=== PATIENT | female | born 2005 | race Caucasian/White ===

== ENCOUNTER 2025-01-17 11:39 | Observation (INO) ==
[2025-01-17] MEDS: ONDANSETRON INJ 2 MG/ML 2 ML VIAL IV STA (12:39)
[2025-01-17] MEDS: SODIUM CHLORIDE 0.9% 1,000 ML IV ONE (12:42)
[2025-01-17] MEDS: ACETAMINOPHEN 1,000 MG/100 ML VIAL IV STA (12:43)
[2025-01-17 12:45] LABS: Hematocrit (blood only) 42.9 % (37.0-47.0); Hemoglobin 14.5 g/dl (12.0-16.0); Mean Corpuscular Hemoglobin 26.8 pg (25.0-34.0); Mean Corpuscular Hgb Conc 33.8 g/dL (32.0-36.0); Mean Corpuscular Volume 79.3 fL (80.0-100.0); Mean Platelet Volume 11.9 fL (9.4-12.4); Platelet Count 277 K/uL (130-400); RDW Coefficient of Variation 13.5 % (11.5-14.5); RDW Standard Deviation 38.7 fL (36.4-46.3); Red Blood Count 5.41 M/uL (4.20-5.40); White Blood Count 23.86 K/ul (4.8-10.8)
[2025-01-17 12:47] LABS: Appearance Urine Cloudy (Clear); Bacteria Urine Automated 1+ (None Seen); Bilirubin Urine Negative (Negative); Blood Urine Trace (Negative); Glucose Urine UA Negative (Negative); Ketones Urine 2+ (Negative); Leukocyte Esterase Urine 2+ (Negative); Nitrite Urine Negative (Negative); Protein Urine 2+ (Negative); Specific Gravity Urine 1.028 (1.000-1.030); Urobilinogen Urine Negative (Negative); WBC Urine Automated >50 /hpf (0-5)
[2025-01-17 12:48] LABS: Color Urine Yellow
[2025-01-17 12:59] LABS: Pregnancy Test, Serum Negative (Negative)
--- NOTE | 2025-01-17 13:00 | Emergency Department Note ---
ED DC CONDITION Conditon at Discharge Condition at Discharge: Fair Impression & Plan Acute appendicitis, Nausea & vomiting, Leukocytosis ED Provider Note HISTORY OF PRESENT ILLNESS: Patient is a 19-year-old female presenting with abdominal pain and vomiting. Patient reports that she started having generalized abdominal pain this morning upon waking. Reports that she has vomited multiple times throughout the morning. Reports that she had a sip of water at around 8:30 am but then proceeded to vomit. Locates the pain diffusely across her abdomen. Denies any fevers or chills. Denies any dysuria or hematuria. Denies any recent sick contact exposures. Denies any diarrhea. Denies any history of abdominal surgeries reports her last menstrual period was a month ago. Denies any chest pain or shortness of breath. Describes the pain as a generalized cramping sensation. Denies any alleviating or exacerbating factors. ROS: as above PHYSICAL EXAM: Constitutional: Patient appears in no acute distress. HENT: Head: Normocephalic and atraumatic. Eyes: EOMI, PERRL Mouth/Throat: Mucous membranes moist. Neck: Trachea midline. Neck supple. Cardiovascular: RRR, No murmurs, rubs or gallops. Intact distal pulses. Pulmonary/Chest: No respiratory distress. Breath sounds clear and equal bilaterally. No wheezes or rales. Abdominal: Abdomen soft, no rebound or guarding. RLQ TTP Musculoskeletal: No edema, tenderness or deformity noted. Skin: Warm and dry. No rash, erythema, pallor or cyanosis Psychiatric: Appropriate mood and affect for situation. Neurological: Alert and keenly responsive. CN II-XII grossly intact, moving all extremities equally and fully. MDM: - Vitals signs stable. - History obtained via patient. History as above. - Chronic conditions affecting care: None - Differential diagnoses include, but are not limited to: Aortic aneurysm; appendicitis; diverticulitis; ectopic ; ovarian cyst; ovarian torsion; ureteral calculi - Order placed for continuous cardiac monitoring. At this time, monitor showed rate of 90 bpm with normal sinus rhythm, per my interpretation. - External medical records reviewed. - Laboratory workup interpreted by myself showed leukocytosis (WBC 24.86) with neutrophil predominance; stable electrolytes; slightly elevated glucose (111) with normal anion gap; negative hCG; normal AST/ALT; normal lipase - UA showed bacteria and >50 WBCs, but patient not having any urinary symptoms - Patient given 1g IV tylenol, 1L NS and 4 mg IV zofran for symptomatic management. - CT abdomen/pelvis with IV contrast showed findings significant for acute appendicitis. - Discussed case with general surgeon vibration technician, Dr. Brown, at 13:22. He requested that his PA be updated. Did message Bonita Cruz PA-C. Plans to admit the patient. - Patient given mefoxin for antibiotic coverage. - Patient admitted to general surgery service for further evaluation and management. ASSESSMENT AND PLAN: Diagnosis: Acute appendicitis; nausea and vomiting; leukocytosis Plan: Admit Past Med/Surg History Problem List (Updated 01/17/25 @ 14:43 by Bonita Cruz PA-C) Nausea and vomiting Abdominal pain Medical History Bordetella pertussis Social History Smoking Status: Current some day smoker Preferred Language: Ukrainian Feels Safe at Home: Yes Home Meds Previous Rx's Medication Instructions Recorded benzonatate 100 mg capsule 100 mg PO TID PRN cough #20 caps 08/02/24 albuterol sulfate 90 mcg/actuation 2 inh inhalation Q6H #18 grams 08/04/24 aerosol inhaler Results & Data (ED) Vital Signs Vital Signs - 24 hr 01/17/25 11:47 01/17/25 12:10 Temperature 36.3 C L Temperature Source Temporal Artery Scan Pulse Rate 89 Pulse Strength Normal Respiratory Rate 16 Respiratory Effort / Characteristics Non-Labored Spontaneous Respiratory Depth Normal Respiratory Pattern Regular Blood Pressure 131/98 Blood Pressure Mean 109 Blood Pressure Position Sitting Pulse Oximetry 96 97 Oxygen Delivery Method Room Air Sepsis Recent Fever Within 48 Hours No Sepsis New/Unexplained Change in Mental Status No Sepsis Action Taken by Nursing No Action Required Laboratory Data 01/17/25 12:10 01/17/25 12:10 Lab Results 01/17/25 01/17/25 Range/Units 12:10 12:11 WBC 23.86 H (4.8-10.8) K/ul RBC 5.41 H (4.20-5.40) M/uL Hgb 14.5 (12.0-16.0) g/dl Hct 42.9 (37.0-47.0) % MCV 79.3 L (80.0-100.0) fL MCH 26.8 (25.0-34.0) pg MCHC 33.8 (32.0-36.0) g/dL RDW Std Deviation 38.7 (36.4-46.3) fL RDW Coeff of Malini 13.5 (11.5-14.5) % Plt Count 277 (130-400) K/uL MPV 11.9 (9.4-12.4) fL Immature Gran % (Auto) 0.5 % Neut % (Auto) 87.3 % Lymph % (Auto) 4.3 % [place] % (Auto) 7.3 % Eos % (Auto) 0.3 % Baso % (Auto) 0.3 % Neut # (Auto) 20.82 H (1.40-6.50) K/uL Lymph # (Auto) 1.03 L (1.20-3.40) K/uL [place] # (Auto) 1.74 H (0.11-0.59) K/uL Eos # (Auto) 0.08 (0.00-0.50) K/uL Baso # (Auto) 0.07 (0.00-0.20) K/uL Immature Gran # (Auto) 0.12 (0.01-0.20) K/uL Sodium 137 (136-145) mmol/L Potassium 3.9 (3.5-5.1) mmol/L Chloride 102 (98-107) mmol/L Carbon Dioxide 24 (21-32) mmol/L Anion Gap 11 (3-11) BUN 19 (6-23) mg/dl Creatinine 0.74 (0.6-1.2) mg/dl Est Cr Clr Drug Dosing 92.3 ml/min eGFR 119.45 BUN/Creatinine Ratio 25.7 H (10-20) Glucose 111 H (70-99(Fasting)) mg/dl Calcium 9.3 (8.6-10.3) mg/dl Total Bilirubin 0.9 (0.2-1.0) mg/dl AST 20 (13-39) U/L ALT 42 (7-52) U/L Alkaline Phosphatase 76 (34-104) U/L Total Protein 7.9 (6.0-8.3) gm/dl Albumin 4.8 (3.4-5.0) gm/dl Globulin 3.1 (2.5-4.0) gm/dl Albumin/Globulin Ratio 1.5 (0.9-2) Lipase 9 L (11-82) U/L HCG, Qual Negative (Negative) Urine Color Yellow Urine Appearance Cloudy A (Clear) Urine pH 6.0 (4.5-7.5) Ur Specific [place] 1.028 (1.000-1.030) Urine Protein 2+ H (Negative) Urine Glucose (UA) Negative (Negative) Urine Ketones 2+ H (Negative) Urine Blood Trace H (Negative) Urine Nitrite Negative (Negative) Urine Bilirubin Negative (Negative) Urine Urobilinogen Negative (Negative) Ur Leukocyte Esterase 2+ H (Negative) Urine WBC (Auto) >50 H (0-5) /hpf Urine RBC (Auto) 3-5 H (0-2) /hpf U Hyaline Cast (Auto) 3-5 H (0-2) /lpf U Epithel Cells (Auto) 6-10 H (0-2) /hpf Urine Bacteria (Auto) 1+ H (None Seen) Administered Medications Discontinued Medications Sodium Chloride (Nss) 1,000 mls @ 999 mls/hr IV .Q1H1M ONE Stop: 01/17/25 13:28 Last Infusion: 01/17/25 13:50 Dose: Infused Documented By: Admin: 01/17/25 12:42 Dose: 999 mls/hr Documented By: NOI Acetaminophen (Ofirmev) 1,000 mg in 100 mls @ 400 mls/hr IV NOW STA Stop: 01/17/25 12:42 Last Infusion: 01/17/25 13:00 Dose: Infused Documented By: Admin: 01/17/25 12:43 Dose: 400 mls/hr Documented By: ONI Cefoxitin Sodium (Mefoxin) 2,000 mg in 60 mls @ 100 mls/hr IV NOW STA Stop: 01/17/25 14:00 Last Infusion: 01/17/25 13:50 Dose: Infused Documented By: Admin: 01/17/25 13:32 Dose: 100 mls/hr Documented By: ONI Ioversol (Optiray 320 100ml) 95 ml IV ONCE ONE Stop: 01/17/25 13:02 Last Admin: 01/17/25 13:01 Dose: 95 ml Documented By: CHRISTINE Ondansetron HCl (Ondansetron Inj 2 Mg/Ml 2 Ml Vial) 4 mg IV NOW STA Stop: 01/17/25 12:29 Last Admin: 01/17/25 12:39 Dose: 4 mg Documented By: [facility] [place] Imaging Data Radiologist's Impression: Abdomen/Pelvis CT 01/17/25 12:28 CT SCAN OF THE ABDOMEN AND PELVIS WITH IV CONTRAST CLINICAL HISTORY: Right lower quadrant abdominal pain, nausea and vomiting. COMPARISON STUDY: None. TECHNIQUE: Following the IV administration of 95 cc of Optiray 320, CT scan of the abdomen and pelvis is performed from the lung bases to the proximal femora. Images are reviewed in the axial, sagittal, and coronal planes. IV contrast was administered without complication. A dose lowering technique was utilized adhering to the principles of ALARA. CT DOSE: 440.89 mGy.cm FINDINGS: Lung bases: The size of the heart is normal. There is no pericardial effusion. The lung bases are clear. Liver: The liver morphology is normal and there are no hepatic lesions. There is no intrahepatic biliary ductal dilatation. The hepatic veins and portal veins are patent. Gallbladder: Unremarkable. Spleen: Normal in size and attenuation. Pancreas: There are no pancreatic lesions. No pancreatic ductal dilatation is present. Adrenal glands: Unremarkable. Kidneys: There are no renal lesions. There is no hydronephrosis. The kidneys enhance symmetrically. Abdominal vasculature: The caliber of the abdominal aorta is normal. Major vasculature is patent. Bowel: The caliber and wall thickness of small and large bowel are normal. The appendix is at upper limits of normal for caliber, measuring 6 mm, and fluid- filled. There is prominent enhancement of the appendiceal wall. No definite periappendiceal inflammation. No free air or abscess is present. Peritoneum: There is no intraperitoneal free air. Trace fluid within the pelvis is present. Lymphadenopathy: None. Pelvic viscera: There is a rim-enhancing 2.2 cm right ovarian lesion. Skeletal structures: No lytic or blastic lesions are seen. IMPRESSION: 1. Findings equivocal for acute appendicitis. Top normal caliber appendix which is fluid-filled with prominent wall enhancement. No definite periappendiceal inflammation. 2. No bowel obstruction. No bowel wall thickening. 3. 2.2 cm rim-enhancing right adnexal lesion suggestive of a corpus luteal cyst. 4. Trace fluid within the pelvis. ACT 112: Negative or not required by law. Electronically signed by: Dakota Nash M.D. 01/17/2025 1:18 PM Discharge Plan Visit Data Chief Complaint: Abdominal Pain Stated Complaint: VOMITING, ABDOMINAL PAIN ED Provider: Josselin Cohen Discharge Problem: Acute appendicitis, Nausea & vomiting, Leukocytosis Condition: Fair Forms Stand Alone Forms: [employer] Prescriptions Prescriptions: No Action albuterol sulfate 90 mcg/actuation HFA aerosol inhaler 2 inh inhalation Q6H Qty: 18 2RF benzonatate 100 mg capsule 100 mg PO TID PRN (Reason: cough) Qty: 20 0RF Referrals Referrals: [facility] [Primary Care Provider] -
[2025-01-17 13:01] LABS: Albumin Globulin Ratio 1.5 (0.9-2); Albumin Level 4.8 gm/dl (3.4-5.0); BUN Creatinine Ratio 25.7 (10-20); Bilirubin,Total 0.9 mg/dl (0.2-1.0); Calcium 9.3 mg/dl (8.6-10.3); Creatinine Clr Calc Pharmacy 92.3 ml/min; Globulin 3.1 gm/dl (2.5-4.0); Potassium 3.9 mmol/L (3.5-5.1); Total Protein 7.9 gm/dl (6.0-8.3)
[2025-01-17] MEDS: OPTIRAY 320 100ml IV ONE (13:01)
[2025-01-17 13:05] LABS: Basophils # (auto) 0.07 K/uL (0.00-0.20); Basophils % (auto) 0.3 %; Eosinophils # (auto) 0.08 K/uL (0.00-0.50); Eosinophils % (auto) 0.3 %; Immature Granulocytes # (auto) 0.12 K/uL (0.01-0.20); Immature Granulocytes % (auto) 0.5 %; Lymphocytes # (auto) 1.03 K/uL (1.20-3.40); Lymphocytes % (auto) 4.3 %; Monocytes # (auto) 1.74 K/uL (0.11-0.59); Monocytes % (auto) 7.3 %; Neutrophils # (auto) 20.82 K/uL (1.40-6.50); Neutrophils % (auto) 87.3 %
--- NOTE | 2025-01-17 13:19 | CT Scan Report ---
CT SCAN OF THE ABDOMEN AND PELVIS WITH IV CONTRAST CLINICAL HISTORY: Right lower quadrant abdominal pain, nausea and vomiting. COMPARISON STUDY: None. TECHNIQUE: Following the IV administration of 95 cc of Optiray 320, CT scan of the abdomen and pelvi s is performed from the lung bases to the proximal femora. Images are reviewed in the axial, sagittal , and coronal planes. IV contrast was administered without complication. A dose lowering technique wa s utilized adhering to the principles of ALARA. CT DOSE: 440.89 mGy.cm FINDINGS: Lung bases: The size of the heart is normal. There is no pericardial effusion. The lung bases are guerita ar. Liver: The liver morphology is normal and there are no hepatic lesions. There is no intrahepatic bili kenna ductal dilatation. The hepatic veins and portal veins are patent. Gallbladder: Unremarkable. Spleen: Normal in size and attenuation. Pancreas: There are no pancreatic lesions. No pancreatic ductal dilatation is present. Adrenal glands: Unremarkable. Kidneys: There are no renal lesions. There is no hydronephrosis. The kidneys enhance symmetrically. Abdominal vasculature: The caliber of the abdominal aorta is normal. Major vasculature is patent. Bowel: The caliber and wall thickness of small and large bowel are normal. The appendix is at upper l imits of normal for caliber, measuring 6 mm, and fluid-filled. There is prominent enhancement of the appendiceal wall. No definite periappendiceal inflammation. No free air or abscess is present. Peritoneum: There is no intraperitoneal free air. Trace fluid within the pelvis is present. Lymphadenopathy: None. Pelvic viscera: There is a rim-enhancing 2.2 cm right ovarian lesion. Skeletal structures: No lytic or blastic lesions are seen. IMPRESSION: 1. Findings equivocal for acute appendicitis. Top normal caliber appendix which is fluid-filled with prominent wall enhancement. No definite periappendiceal inflammation. 2. No bowel obstruction. No bowel wall thickening. 3. 2.2 cm rim-enhancing right adnexal lesion suggestive of a corpus luteal cyst. 4. Trace fluid within the pelvis. ACT 112: Negative or not required by law. Electronically signed by: Dakota Nash M.D. 01/17/2025 1:18 PM
[2025-01-17] MEDS: cefOXitin 2,000 MG/60 ML BAG IV STA (13:32)
--- NOTE | 2025-01-17 14:48 | History & Physical Report ---
Date of Service January 17, 2025 Assessment & Plan (1) Abdominal pain: (2) Nausea and vomiting: Plan: 19 yo female with generalized abdominal pain that started as cramping pain last evening and increased in severity with nausea and vomiting. Leukocytosis of 23k however afebrile. CT scan of abdomen and pelvis with equivocal findings of acute appendicitis, mildly dilated appendix with wall prominence but no periappendiceal stranding. Tenderness in LLQ, RUQ and RLQ on abdominal examination. Discussed with patient that her imaging is equivocal for acute appendicitis and given her examination with tenderness in 3 quadrants this could be other etiology. Discussed option of admission with IV antibiotics, pain management and antiemetics as needed and close monitoring. If pain not improving or worsening than could proceed with laparoscopic appendectomy shayy manzano. Discussed laparoscopic appendectomy, risks, expected recovery and restrictions. She is a [employer] student and will be traveling home to [facility] on Friday. I discussed with patient I think very reasonable to admit and see how she does on IV antibiotics, if improves would discharge on 7 days of oral antibiotics. She is in agreement with proceeding with conservative management first with close monitoring. Discussed with Dr. Brown who agrees with above. History of Present Illness Chief Complaint: abdominal pain, nausea and vomiting Primary Care Provider: [facility] Huber is a 19 yo female who presented to ED with complaint of abdominal pain with associated nausea and vomiting that started last evening around 7 pm . Initially pain was more cramping in nature and then increased in severity this am around 4 am with nausea and bilious vomiting. Denies of any fever, chills, chest pain, shortness of breath, diarrhea, blood in stools, difficulty urinating or blood in urine. Had chicken and rice last night and friend also had which he did not have similar symptoms. Denies of any prior abdominal surgeries. Pain is currently 2/10. was about 7/10 initially. Home Medications Medication Instructions Recorded Confirmed Type benzonatate 100 mg capsule 100 mg PO TID PRN cough #20 caps 08/02/24 Rx albuterol sulfate 90 mcg/actuation 2 inh inhalation Q6H #18 grams 08/04/24 Rx aerosol inhaler Past Med/Surg History Problem List (Updated 01/17/25 @ 14:43 by Bonita Cruz PA-C) Nausea and vomiting Abdominal pain Medical History Bordetella pertussis Social History Smoking Status: Current some day smoker Preferred Language: Czech Feels Safe at Home: Yes Review of Systems Review of Systems: All systems reviewed & are unremarkable except as noted in HPI & below Physical Exam Constitutional: WD/WN, vitals as above cooperative and comfortable; no acute distress and not ill appearing Respiratory: normal respiratory effort, lungs clear to auscultation Cardiovascular: RRR, no murmur, no edema Gastrointestinal (Abdomen): Inspection/Auscultation: abdomen normal to ins pection and + abdomen distended (mild) Percussion/Palpation: + abdomen tender (LLQ, RLQ, and RUQ) and abdomen soft; no guarding and abdomen not rigid Skin: no rashes, warm and dry Psychiatric: A+Ox3, euthymic affect Results & Data Results & Data Vital Signs (Past 12 Hours) Vital Signs Temp Pulse Resp BP Pulse Ox O2 Del Method 01/17/25 12:10 97 Room Air 01/17/25 11:47 36.3 C L 89 16 131/98 96 Laboratory Results 01/17/25 01/17/25 Range/Units 12:11 12:10 WBC 23.86 H (4.8-10.8) K/ul RBC 5.41 H (4.20-5.40) M/uL Hgb 14.5 (12.0-16.0) g/dl Hct 42.9 (37.0-47.0) % MCV 79.3 L (80.0-100.0) fL MCH 26.8 (25.0-34.0) pg MCHC 33.8 (32.0-36.0) g/dL RDW Std Deviation 38.7 (36.4-46.3) fL RDW Coeff of Malini 13.5 (11.5-14.5) % Plt Count 277 (130-400) K/uL MPV 11.9 (9.4-12.4) fL Immature Gran % (Auto) 0.5 % Neut % (Auto) 87.3 % Lymph % (Auto) 4.3 % [place] % (Auto) 7.3 % Eos % (Auto) 0.3 % Baso % (Auto) 0.3 % Neut # (Auto) 20.82 H (1.40-6.50) K/uL Lymph # (Auto) 1.03 L (1.20-3.40) K/uL [place] # (Auto) 1.74 H (0.11-0.59) K/uL Eos # (Auto) 0.08 (0.00-0.50) K/uL Baso # (Auto) 0.07 (0.00-0.20) K/uL Immature Gran # (Auto) 0.12 (0.01-0.20) K/uL Sodium 137 (136-145) mmol/L Potassium 3.9 (3.5-5.1) mmol/L Chloride 102 (98-107) mmol/L Carbon Dioxide 24 (21-32) mmol/L Anion Gap 11 (3-11) BUN 19 (6-23) mg/dl Creatinine 0.74 (0.6-1.2) mg/dl Est Cr Clr Drug Dosing 92.3 ml/min eGFR 119.45 BUN/Creatinine Ratio 25.7 H (10-20) Glucose 111 H (70-99(Fasting)) mg/dl Calcium 9.3 (8.6-10.3) mg/dl Total Bilirubin 0.9 (0.2-1.0) mg/dl AST 20 (13-39) U/L ALT 42 (7-52) U/L Alkaline Phosphatase 76 (34-104) U/L Total Protein 7.9 (6.0-8.3) gm/dl Albumin 4.8 (3.4-5.0) gm/dl Globulin 3.1 (2.5-4.0) gm/dl Albumin/Globulin Ratio 1.5 (0.9-2) Lipase 9 L (11-82) U/L HCG, Qual Negative (Negative) Urine Color Yellow Urine Appearance Cloudy A (Clear) Urine pH 6.0 (4.5-7.5) Ur Specific [place] 1.028 (1.000-1.030) Urine Protein 2+ H (Negative) Urine Glucose (UA) Negative (Negative) Urine Ketones 2+ H (Negative) Urine Blood Trace H (Negative) Urine Nitrite Negative (Negative) Urine Bilirubin Negative (Negative) Urine Urobilinogen Negative (Negative) Ur Leukocyte Esterase 2+ H (Negative) Urine WBC (Auto) >50 H (0-5) /hpf Urine RBC (Auto) 3-5 H (0-2) /hpf U Hyaline Cast (Auto) 3-5 H (0-2) /lpf U Epithel Cells (Auto) 6-10 H (0-2) /hpf Urine Bacteria (Auto) 1+ H (None Seen) Diagnostic Findings CT SCAN OF THE ABDOMEN AND PELVIS WITH IV CONTRAST CLINICAL HISTORY: Right lower quadrant abdominal pain, nausea and vomiting. COMPARISON STUDY: None. TECHNIQUE: Following the IV administration of 95 cc of Optiray 320, CT scan of the abdomen and pelvis is performed from the lung bases to the proximal femora. Images are reviewed in the axial, sagittal, and coronal planes. IV contrast was administered without complication. A dose lowering technique was utilized adhering to the principles of ALARA. CT DOSE: 440.89 mGy.cm FINDINGS: Lung bases: The size of the heart is normal. There is no pericardial effusion. The lung bases are clear. Liver: The liver morphology is normal and there are no hepatic lesions. There is no intrahepatic biliary ductal dilatation. The hepatic veins and portal veins are patent. Gallbladder: Unremarkable. Spleen: Normal in size and attenuation. Pancreas: There are no pancreatic lesions. No pancreatic ductal dilatation is present. Adrenal glands: Unremarkable. Kidneys: There are no renal lesions. There is no hydronephrosis. The kidneys enhance symmetrically. Abdominal vasculature: The caliber of the abdominal aorta is normal. Major vasculature is patent. Bowel: The caliber and wall thickness of small and large bowel are normal. The appendix is at upper limits of normal for caliber, measuring 6 mm, and fluid- filled. There is prominent enhancement of the appendiceal wall. No definite periappendiceal inflammation. No free air or abscess is present. Peritoneum: There is no intraperitoneal free air. Trace fluid within the pelvis is present. Lymphadenopathy: None. Pelvic viscera: There is a rim-enhancing 2.2 cm right ovarian lesion. Skeletal structures: No lytic or blastic lesions are seen. IMPRESSION: 1. Findings equivocal for acute appendicitis. Top normal caliber appendix which is fluid-filled with prominent wall enhancement. No definite periappendiceal inflammation. 2. No bowel obstruction. No bowel wall thickening. 3. 2.2 cm rim-enhancing right adnexal lesion suggestive of a corpus luteal cyst. 4. Trace fluid within the pelvis. I personally reviewed CT scan and agrees with above findings. Code Status & VTE Plan VTE Prophylaxis Plan VTE Prophylaxis will be ordered: Yes
[2025-01-17] MEDS: fentaNYL citrate PF 100 MCG/2 ML VIAL IV STA (15:25)
[2025-01-17] MEDS ORDERED: ACETAMINOPHEN 325 MG TAB PO PRN (18:57)
[2025-01-17] MEDS ORDERED: MoRPHine SULFATE 2 MG/ML CARP IV PRN (18:57)
[2025-01-17] MEDS ORDERED: ONDANSETRON INJ 2 MG/ML 2 ML VIAL IV PRN (18:57)
[2025-01-17] MEDS ORDERED: PROMETHAZINE 12.5 MG/50.5 ML BAG IV PRN (18:57)
[2025-01-17] MEDS: LACTATED RINGER'S 1,000 ML IV SCH (18:57)
[2025-01-17] MEDS: MoRPHine SULFATE 2 MG/ML CARP IV PRN (19:28)
[2025-01-17] MEDS: PIPERACILLIN/TAZOBACTAM 4.5 GM/100 ML BAG IV ONE (19:30)
[2025-01-18] MEDS: PIPERACILLIN/TAZOBACTAM 4.5 GM/100 ML BAG IV SCH (03:24)
[2025-01-18 07:52] LABS: Basophils # (auto) 0.05 K/uL (0.00-0.20); Basophils % (auto) 0.7 %; Eosinophils # (auto) 0.18 K/uL (0.00-0.50); Eosinophils % (auto) 2.4 %; Hematocrit (blood only) 33.1 % (37.0-47.0); Hemoglobin 10.9 g/dl (12.0-16.0); Immature Granulocytes # (auto) 0.02 K/uL (0.01-0.20); Immature Granulocytes % (auto) 0.3 %; Lymphocytes # (auto) 2.11 K/uL (1.20-3.40); Lymphocytes % (auto) 27.9 %; Mean Corpuscular Hemoglobin 26.8 pg (25.0-34.0); Mean Corpuscular Hgb Conc 32.9 g/dL (32.0-36.0); Mean Corpuscular Volume 81.5 fL (80.0-100.0); Mean Platelet Volume 11.5 fL (9.4-12.4); Monocytes # (auto) 0.95 K/uL (0.11-0.59); Monocytes % (auto) 12.5 %; Neutrophils # (auto) 4.26 K/uL (1.40-6.50); Neutrophils % (auto) 56.2 %; Platelet Count 189 K/uL (130-400); RDW Coefficient of Variation 13.6 % (11.5-14.5); RDW Standard Deviation 40.1 fL (36.4-46.3); Red Blood Count 4.06 M/uL (4.20-5.40); White Blood Count 7.57 K/ul (4.8-10.8)
[2025-01-18 08:06] LABS: BUN Creatinine Ratio 11.3 (10-20); Calcium 8.1 mg/dl (8.6-10.3); Creatinine Clr Calc Pharmacy 96.2 ml/min; Potassium 3.9 mmol/L (3.5-5.1)
--- NOTE | 2025-01-18 08:55 | Surgery Progress Note ---
Date of Service January 18, 2025 Assessment & Plan (1) Abdominal pain: Plan: appendicitis not responding will plan lap appy today Surgery and risks reviewed with patient, all quesitons answered keep npo informed consent with Dr. rodriguez preop (2) Nausea and vomiting: Admission and Anticipated Discharge Date Admission Date: January 17, 2025 Subjective feeling okay but pain still present and not improving, requiring multiple doses of IV Morphine overnight nausea resolved no fevers or chills Physical Exam Constitutional: WD/WN, vitals as above cooperative and comfortable; no acute distress and not ill appearing Gastrointestinal (Abdomen): Inspection/Auscultation: abdomen normal to inspection; abdomen not distended Percussion/Palpation: + abdomen tender (RLQ), + guarding (RLQ on deep palpation, voluntary) and abdomen soft; abdomen not rigid and abdomen not firm Skin: no rashes, warm and dry Psychiatric: A+Ox3, euthymic affect Results & Data Vital Signs (Past 12 Hours) Vital Signs Temp Pulse Resp BP Pulse Ox O2 Del Method 01/18/25 07:13 36.6 C 61 16 97/60 L 99 Room Air Laboratory Results 01/18/25 01/17/25 01/17/25 Range/Units 07:07 12:11 12:10 WBC 7.57 D 23.86 H (4.8-10.8) K/ul RBC 4.06 L 5.41 H (4.20-5.40) M/uL Hgb 10.9 L D 14.5 (12.0-16.0) g/dl Hct 33.1 L 42.9 (37.0-47.0) % MCV 81.5 79.3 L (80.0-100.0) fL MCH 26.8 26.8 (25.0-34.0) pg MCHC 32.9 33.8 (32.0-36.0) g/dL RDW Std Deviation 40.1 38.7 (36.4-46.3) fL RDW Coeff of Malini 13.6 13.5 (11.5-14.5) % Plt Count 189 277 (130-400) K/uL MPV 11.5 11.9 (9.4-12.4) fL Immature Gran % (Auto) 0.3 0.5 % Neut % (Auto) 56.2 87.3 % Lymph % (Auto) 27.9 4.3 % [place] % (Auto) 12.5 7.3 % Eos % (Auto) 2.4 0.3 % Baso % (Auto) 0.7 0.3 % Neut # (Auto) 4.26 20.82 H (1.40-6.50) K/uL Lymph # (Auto) 2.11 1.03 L (1.20-3.40) K/uL [place] # (Auto) 0.95 H 1.74 H (0.11-0.59) K/uL Eos # (Auto) 0.18 0.08 (0.00-0.50) K/uL Baso # (Auto) 0.05 0.07 (0.00-0.20) K/uL Immature Gran # (Auto) 0.02 0.12 (0.01-0.20) K/uL Sodium 138 137 (136-145) mmol/L Potassium 3.9 3.9 (3.5-5.1) mmol/L Chloride 107 102 (98-107) mmol/L Carbon Dioxide 27 24 (21-32) mmol/L Anion Gap 4 11 (3-11) BUN 8 19 (6-23) mg/dl Creatinine 0.71 0.74 (0.6-1.2) mg/dl Est Cr Clr Drug Dosing 96.2 92.3 ml/min eGFR 125.53 119.45 BUN/Creatinine Ratio 11.3 25.7 H (10-20) Glucose 95 111 H (70-99(Fasting)) mg/dl Calcium 8.1 L 9.3 (8.6-10.3) mg/dl Total Bilirubin 0.9 (0.2-1.0) mg/dl AST 20 (13-39) U/L ALT 42 (7-52) U/L Alkaline Phosphatase 76 (34-104) U/L Total Protein 7.9 (6.0-8.3) gm/dl Albumin 4.8 (3.4-5.0) gm/dl Globulin 3.1 (2.5-4.0) gm/dl Albumin/Globulin Ratio 1.5 (0.9-2) Lipase 9 L (11-82) U/L HCG, Qual Negative (Negative) Urine Color Yellow Urine Appearance Cloudy A (Clear) Urine pH 6.0 (4.5-7.5) Ur Specific [place] 1.028 (1.000-1.030) Urine Protein 2+ H (Negative) Urine Glucose (UA) Negative (Negative) Urine Ketones 2+ H (Negative) Urine Blood Trace H (Negative) Urine Nitrite Negative (Negative) Urine Bilirubin Negative (Negative) Urine Urobilinogen Negative (Negative) Ur Leukocyte Esterase 2+ H (Negative) Urine WBC (Auto) >50 H (0-5) /hpf Urine RBC (Auto) 3-5 H (0-2) /hpf U Hyaline Cast (Auto) 3-5 H (0-2) /lpf U Epithel Cells (Auto) 6-10 H (0-2) /hpf Urine Bacteria (Auto) 1+ H (None Seen)
[2025-01-18] MEDS ORDERED: LIDOCAINE 2% 2 ML VIAL/AMP(20MG/ML) INFIL ONE ×2 (10:10)
[2025-01-18] MEDS ORDERED: DEXAMETHASONE SOD INJ 4 MG/ML VIAL ONE ×2 (10:11)
[2025-01-18] MEDS ORDERED: PROPOFOL IV EMULSION 10 MG/ML 20 ML VIAL IV ONE (10:11)
[2025-01-18] MEDS ORDERED: ONDANSETRON INJ 2 MG/ML 2 ML VIAL ONE (10:11)
[2025-01-18] MEDS: KETOROLAC TROMETHAMINE 15 MG/ML VIAL IV PRN (10:19)
--- NOTE | 2025-01-18 10:27 | Surgery Progress Note ---
Date of Service January 18, 2025 Assessment & Plan (1) Abdominal pain: Plan: appendicitis not responding will plan lap appy risks explained Admission and Anticipated Discharge Date Admission Date: January 17, 2025 Subjective still having pain requiring IV pain meds Review of Systems Constitutional: no fever and no chills Gastrointestinal: + abdominal pain and + nausea Physical Exam Gastrointestinal (Abdomen): Inspection/Auscultation: abdomen normal to inspection and normal bowel sounds; abdomen not distended Percu ssion/Palpation: + abdomen tender and abdomen soft; no guarding and abdomen not rigid Results & Data Vital Signs (Past 12 Hours) Vital Signs Temp Pulse Resp BP Pulse Ox O2 Del Method 01/18/25 07:13 36.6 C 61 16 97/60 L 99 Room Air
[2025-01-18] MEDS ORDERED: MIDAZOLAM HCL 1 MG/ML 2ML VIAL ONE (11:03)
[2025-01-18] MEDS ORDERED: fentaNYL citrate PF 100 MCG/2 ML VIAL ONE ×2 (11:03→12:01)
--- NOTE | 2025-01-18 11:14 | Anesthesiology Consultation ---
Date of Service January 18, 2025 Assessment & Plan Chart Review Chart Review: Acceptable Risk for Surgery Consults Requested none History Surgery Operation Date: 01/18/25 09:00 Proposed Procedures p Laparoscopic Appendectomy - Bob Brown MD Height/Weight Height: 5 ft 1 in Weight: 49.1 kg Allergies Allergy/AdvReac Type Severity Reaction Status Date / Time kiwi Allergy Intermediate Itching Unverified 01/17/25 15:08 Medications Home Medications Medication Instructions Recorded Confirmed Last Taken No Known Home Medications 01/17/25 01/17/25 Unknown Active Medications Generic Name Dose Route Start Last Admin Trade Name Freq PRN Reason Stop Dose Admin Piperacillin Sod/Tazobactam Sod 4.5 gm in 100 mls @ 25 mls/hr 01/18/25 03:30 01/18/25 10:53 Zosyn IV 01/22/25 03:29 25 mls/hr Q8H DAMIEN Administration Protocol Lactated Ringer's 1,000 mls @ 100 mls/hr 01/17/25 18:57 01/18/25 05:38 Lr IV 01/20/25 18:56 100 mls/hr .Q10H DAMIEN Administration Ketorolac Tromethamine 15 mg 01/17/25 18:57 01/18/25 10:19 Ketorolac Tromethamine 15 Mg/Ml Vial IV 01/22/25 18:56 15 mg Q6H PRN Administration Moderate Pain (Scale 4, 5, 6) Morphine Sulfate 2 mg 01/17/25 18:57 01/18/25 06:34 Morphine Sulfate 2 Mg/Ml Carp IV 01/31/25 18:56 2 mg Q3H PRN Administration Pain (6,7,8,9,10) NPO Date Last Intake of Fluids: 01/17/25 Time Last Intake of Fluids: 23:55 Date Last Intake of Solids: 01/17/25 Time Last Intake of Solids: 20:00 Past Medical History Medical History Bordetella pertussis Social History Smoking Status: Former smoker Do You Dip or Chew Tobacco: No Hx Alcohol Use: Yes Alcohol type: beer and other alcohol intake frequency: holidays/special occasions only Hx Substance Use: No substance use type: does not use Physical Exam Vital Signs Last Vital Signs Temp 36.6 C 01/18/25 07:13 Pulse 61 01/18/25 07:13 Resp 16 01/18/25 07:13 BP 97/60 L 01/18/25 07:13 Pulse Ox 99 01/18/25 07:13 O2 Del Method Room Air 01/18/25 07:13 Testing Laboratory Results 01/18/25 07:07 01/18/25 07:07 Urine Color Yellow 01/17/25 12:11 Urine Appearance Cloudy (Clear) A 01/17/25 12:11 Urine pH 6.0 (4.5-7.5) 01/17/25 12:11 Ur Specific [place] 1.028 (1.000-1.030) 01/17/25 12:11 Urine Protein 2+ (Negative) H 01/17/25 12:11 Urine Glucose (UA) Negative (Negative) 01/17/25 12:11 Urine Ketones 2+ (Negative) H 01/17/25 12:11 Urine Nitrite Negative (Negative) 01/17/25 12:11 Ur Leukocyte Esterase 2+ (Negative) H 01/17/25 12:11 Urine WBC (Auto) >50 /hpf (0-5) H 01/17/25 12:11 Urine RBC (Auto) 3-5 /hpf (0-2) H 01/17/25 12:11 U Hyaline Cast (Auto) 3-5 /lpf (0-2) H 01/17/25 12:11 U Epithel Cells (Auto) 6-10 /hpf (0-2) H 01/17/25 12:11 Urine Bacteria (Auto) 1+ (None Seen) H 01/17/25 12:11 01/17/25 12:11 Urine Culture - Preliminary Urine,Clean Catch Pin-point growth present, reincubating.
[2025-01-18] MEDS ORDERED: ePHEDrine sulfate 50 MG/ML AMP IV PRN (11:15)
[2025-01-18] MEDS ORDERED: PROMETHAZINE HCL 6.25 MG in SODIUM CHLORIDE 0.9% 50 ML IV PRN (11:15)
[2025-01-18] MEDS ORDERED: HYDROmorphone INJ 2 MG/ML SYR/VIAL IV PRN (11:15)
[2025-01-18] MEDS ORDERED: ATROPINE SULFATE 0.1 MG/ML 10ML SYR IV PRN (11:15)
[2025-01-18] MEDS ORDERED: ONDANSETRON INJ 2 MG/ML 2 ML VIAL IV PRN (11:15)
[2025-01-18] MEDS ORDERED: SUGAMMADEX SODIUM 200 MG/2 ML VIAL IV ONE (11:59)
[2025-01-18] MEDS ORDERED: KETOROLAC 30 MG/ML VIAL ONE (11:59)
[2025-01-18] MEDS: BUPIVACAINE/EPINEPHRINE 0.5% MPF 1:200,000 30 ML VIAL ONE (12:15)
--- NOTE | 2025-01-18 12:23 | Operative Report ---
Post Operative Report Pre & Post Diagnosis Operation Date: 01/18/25 09:00 Pre-Op Diagnosis: Acute appendicitis Post-Op Diagnosis: Acute appendicitis I identified the patient and participated in the time-out.: Yes Procedure Operation Date: 01/18/25 09:00 Actual Procedures p Laparoscopic Appendectomy(Not Applicable) - Bob Brown MD Surgeon Bob Brown MD Quill Reamer Bonita Cruz PA-C Estimated Blood Loss 8 Findings Consistent with Post-Op Diagnosis Specimens Appendix to pathology Drains None Anesthesia Type General Complications none Disposition Accompanied Patient To Recovery: No Disposition: Recovery Room Indications This is a 19-year-old female who is admitted with acute abdominal pain and findings on CT suggestive of a possible appendicitis. She was treated with fluids and IV antibiotics. She failed conservative measures having continued pain. Will therefore take her for a laparoscopic appendectomy. We talked about the risks in detail. Description of Procedure The patient was taken to the OR and underwent excellent general anesthesia. Their abdomen was prepped and draped in normal sterile fashion. A transverse supraumbilical incision was made, towel clamps were used to create tension on the abdominal wall as a visualized 5 mm port was inserted. Good pneumoperitoneum was achieved to about 15 mmHg pressure. Once this was done, a 12 mm left lower quadrant port and a 5mm suprapubic port were both placed in normal fashion. Patient was then placed in head down and rolled to the left. A good diagnostic lap was performed. They had obvious acute appendicitis. A grasper was then was then used to grasp the tip of the appendix. The mesoappendix was splayed open and a harmonic scalpel was used to take down the mesoappendix. The base of the appendix was identified and an Endo TIMMY stapler was used to transect the appendix at its base. A endobag was then inserted through the left lower quadrant port and the appendix was placed into the bag, The bag was removed through the left lower quadrant port. The appendix was sent for pathologic evaluation. The pneumoperitoneum was re-established after the 12 mm port was replaced. Saline was then used to irrigate the abdomen. A clip was used to control a staple line bleed. There was no active bleeding nor any other abnormalities noted in the abdomen. The patient was then placed back in neutral position, the ports were removed and the pneumoperitoneum decompressed. The 12mm port fascia was then closed using a 0 Vicryl. The skin was then anesthetized with 0.5% Marcaine with epinephrine local. Interrupted Vicryl is used to close the skin. Dermabond was used to reinforce the incisions. Sterile dressings were applied. The patient tolerated procedure without complications was sent to the postop recovery period of observation. They will be sent to the floor for the rest of their care. Bonita Cruz PA-C was present and participated in the entire procedure. She was integral in skin closure, retraction, and camera manipulation. There was no qualified resident available to assist. I attest to the content of the Intraoperative Record and any orders documented therein. Any exceptions are noted below.
[2025-01-18] MEDS: fentaNYL citrate PF 100 MCG/2 ML VIAL IV PRN (12:45)
--- NOTE | 2025-01-18 13:01 | Anesthesiology Progress Note ---
Date of Service January 18, 2025 Anesthesia Post Procedure Vital Signs Vital Signs: Temp Pulse Resp BP BP Pulse Ox O2 Del Method 01/18/25 07:13 36.6 C 61 16 97/60 L 99 Room Air 01/17/25 18:47 36.8 C 69 16 105/54 L 97 Room Air 01/17/25 18:47 36.8 C 69 16 105/54 L 97 Room Air 01/17/25 18:21 68 18 110/66 100 Room Air 01/17/25 17:34 78 18 102/61 100 Room Air 01/17/25 15:28 68 18 116/71 98 Room Air 01/17/25 14:30 76 18 125/61 96 Room Air 01/17/25 13:45 76 18 108/71 97 Room Air Pain Intensity Abdomen: Pain Intensity: 3 Transfer of Care Handoff Completed per policy Notes Mental Status: alert / awake / arousable Patient Amnestic to Procedure: Yes Nausea / Vomiting: adequately controlled Pain: adequately controlled Airway Patency, RR, SpO2: stable & adequate BP & HR: stable & adequate Hydration State: stable & adequate Anesthetic Complications: no major complications apparent and Pt Satisfied with anesthetic care
[2025-01-18] MEDS ORDERED: oxyCODONE/ACETAMINOPHEN 5mg/325mg TAB PO PRN (13:31)
[2025-01-18 16:37] VITALS: PULSE 75; RESP 18; TEMP 98.1; O2SAT 98
[2025-01-18] MEDS: oxyCODONE/ACETAMINOPHEN 5mg/325mg TAB PO PRN (16:47)
[2025-01-18 18:30] VITALS: BP 93/58
--- NOTE | 2025-01-20 11:49 | Discharge Summary ---
Date of Service January 20, 2025 Admission HPI Per Admitting Provider Huber is a 19 yo female who presented to ED with complaint of abdominal pain with associated nausea and vomiting that started last evening around 7 pm . Initially pain was more cramping in nature and then increased in severity this am around 4 am with nausea and bilious vomiting. Denies of any fever, chills, chest pain, shortness of breath, diarrhea, blood in stools, difficulty urinating or blood in urine. Had chicken and rice last night and friend also had which he did not have similar symptoms. Denies of any prior abdominal surgeries. Pain is currently 2/10. was about 7/10 initially. Principal Diagnosis acute appendicitis Discharge Data Allergies Allergy/AdvReac Type Severity Reaction Status Date / Time kiwi Allergy Intermediate Itching Unverified 01/17/25 15:08 Consultations 01/17/25 14:44 ED Decision to Admit Stat Procedures Performed Operation Date: 01/18/25 09:00 Actual Procedures p Laparoscopic Appendectomy(Not Applicable) - Bob Brown MD Ordered Studies 01/17/25 12:28 CT abd pelvis IV con only Stat Hospital Course (1) Abdominal pain: patient was in initially evaluated in the emergency department for abdominal pain with a CT scan equivocal for acute appendicitis however had a leukocytosis of 23,000. After discussion with patient and examination plan was to admit patient to the hospital for conservative management with IV antibiotics. She was evaluated on hospital day #1 and pain was persistent and requiring multiple doses of IV morphine for pain control. Her leukocytosis resolved however she elected proceed with laparoscopic appendectomy. Patient was taken to the operating room on 01/18/2025 and found to have acute appendicitis. Patient tolerated procedure without difficulty and was transferred back to medical surgical floor for postoperative care diet was advanced as tolerated activity as tolerated IV fluids were continued and and pain control as needed. Patient was evaluated in the afternoon of operative day and was doing well tolerating diet pain controlled no nausea no vomiting and preoperative pain resolved. Patient was discharged home on the day of laparoscopic appendectomy in stable condition. (2) Nausea and vomiting: Total Time Total Time Spent Total Time Spent (In Minutes): 20 minutes Discharge Plan Discharge Items Patient Disposition: Home - Self-Care Reason For Visit: ABDOMINAL PAIN Discharge Diagnosis: acute appendicitis Condition on Discharge: Fair Activity: Per Instructions section Non-emergency contact: Primary Care Provider and Surgeon Call non-emergency contact if: you have any medication questions, your pain is not controlled, your pain is worsening, your pain is concerning for you, you have a fever, your temperature is above 101, your wound has increased redness, your wound has increased drainage and your wound pain has increased Follow-up/Referrals: Bonita Cruz PA-C [Physician Model Making Supervisor] - 02/03/25 10:00 am (THIS IS A TE LEMEDICINE POSTOP VISIT, YOU DO NOT NEED TO COME TO OFFICE) [facility] [Primary Care Provider] - Diet: Regular Addtl Attending Provider Instructions: Post-Surgical ~Discharge Instructions Activity Recommendations: - lifting limitation: (20 pounds for 2-3 weeks), - exercise/sex/sports limit: (nonstrenuous for 2 weeks), - driving or machine use limit: (none for 1 week or until pain free and no longe r taking narcotic pain medication), - Shower/bathe limit: (may shower beginning tomorrow) Diet: - Resume previous diet SPECIAL CARE INSTRUCTIONS: - May shower in 24 hours. Let water run over area and pat dry. - Leave surgical glue on incisions this will fall off on its own - Call the surgeon's office with any questions or concerns - - (ex. temperature higher than 101 degrees F, excessive bleeding or pain). MEDICATIONS: - Resume previous medications unless instructed otherwise by your surgeon. - May alternate extra strength Tylenol and Ibuprofen as needed for mild to mo derate pain -650 mg Tylenol every 6 hours as needed - Ibuprofen 600 mg every 6 hours as needed (take with food) - Percocet 1 every 6 hours, as needed for severe pain - Recommend daily stool softener (Colace) while taking narcotic pain medication to prevent constipation or straining FOLLOW UP VISIT: - If not already scheduled, please call the office to schedule a two week follow-up appointment. Office number Pending Studies at Discharge: Yes (appendix pathology, will be reviewed at postop visit) Stand[facility]Alone [facility], Smoking Cessation Medications and DC Order Prescriptions: New oxycodone-acetaminophen 5-325 mg tablet 1 tab PO Q6H PRN (Reason: pain) Qty: 5 0RF Discharge Orders: Discharge Order (Routine); Ordered 01/18/25 Ordered By: Bonita Enriquez/Other Patient Handouts: After an Appendectomy Admission Data Admit Date/Time: 01/17/25 16:35 Attending Provider: Bob Brown Admit Provider: Bob Brown Primary Care Provider: [facility] Other Providers: Bob Brown Other Interventions: Discharge Summary Assessment (RN) Last Done: 01/18/25 18:29
== END 2025-01-18 18:47 | disposition home or self-care (01) | DRG 399 ==
LOC: ED 11:39 → 3N 11:39